=== PATIENT | male | born 2000 | race Caucasian/White ===

== ENCOUNTER 2024-11-26 16:34 | Emergency (ER) | payer SELFPAY ==
[2024-11-26 16:37] VITALS: BP 163/96; PULSE 90; TEMP 36.7; O2SAT 96; BMI 27.1
--- NOTE | 2024-11-26 16:45 | ED.NAVMDI1 ---
HPI - Nausea/Vomiting/Diarrhea General Chief complaint: Nausea/Vomiting/Diarrhea Stated complaint: BLOODY DIARRHEA Time Seen by Provider: 11/26/24 16:44 Source: patient Mode of arrival: walk-in History of Present Illness HPI Narrative: 24 year old male presents to the ED for diarrhea. Onset was yesterday. Reports bright red blood in his stools today. Denies fever, chills, N/V, abd pain, urinary sx. He returned from [facility] yesterday morning. States no one else he traveled with is ill. Related Data Previous Rx's ?Medication ?Instructions ?Recorded ciprofloxacin HCl 500 mg tablet 500 mg PO BID 10 days #20 tabs 11/26/24 (Cipro) metronidazole 500 mg tablet 500 mg PO Q8H 10 days #30 tabs 11/26/24 Allergies Allergy/AdvReac Type Severity Reaction Status Date / Time No Known Drug Allergies Allergy Verified 11/26/24 16:40 Review of Systems ROS Constitutional Denies: fever, chills or fatigue Ears, nose, mouth, and throat Denies: throat pain or neck pain Cardiovascular Denies: chest pain Respiratory Denies: shortness of breath or cough Gastrointestinal Reports: diarrhea and blood in stool; Denies: abdominal pain, nausea, vomiting or change in stool character Genitourinary Denies: painful urination, urinary frequency, urinary urgency or blood in urine Musculoskeletal Denies: back pain or neck pain Integumentary/Breast Denies: rash Neurological Denies: headache or dizziness PFSH PFSH Social History Little interest or pleasure in doing things: not at all Feeling down, depressed, or hopeless: not at all Exam Constitutional Vital Signs, click to edit/add: Last Vital Signs Temp 98.0 F 11/26/24 16:37 Pulse 90 11/26/24 16:37 Resp 16 11/26/24 16:37 BP 163/96 H 11/26/24 16:37 Pulse Ox 96 11/26/24 16:37 O2 Del Method Room Air 11/26/24 16:37 Common normals: no apparent distress and oriented x3 General appearance: cooperative [facility] Common normals: moist oral mucous membranes Eye Common normals: conjunctivae normal and no scleral icterus Neck & C-Spine Common normals: supple Chest Chest: symmetrical chest wall rise Respiratory Common normals: normal respiratory effort Effort & inspection: able to speak in complete sentences and symmetric chest movement Cardio Common normals: regular rate and regular rhythm GI Common normals: Normal to inspection, nondistended, normoactive bowel sounds present, soft to palpation and non-tender Neuro Common normals: oriented x3 and moves all extremities Sensorium/orientation: awake and alert Speech: speech normal Gait (neuro): normal gait Course Vital Signs Vital signs: Vital Signs Temperature 98.0 F 11/26/24 16:37 Pulse Rate 90 11/26/24 16:37 Respiratory Rate 16 11/26/24 16:37 Blood Pressure 163/96 H 11/26/24 16:37 Pulse Oximetry 96 11/26/24 16:37 Oxygen Delivery Method Room Air 11/26/24 16:37 Temperature 98.0 F 11/26/24 16:37 Pulse Rate 90 11/26/24 16:37 Respiratory Rate 16 11/26/24 16:37 Blood Pressure 163/96 H 11/26/24 16:37 Pulse Oximetry 96 11/26/24 16:37 Oxygen Delivery Method Room Air 11/26/24 16:37 MDM - Nausea/Vomiting/Diarrhea MDM Narrative Medical decision making narrative: WBC count was unremarkable. CT scan showed evidence of colitis. Stool culture was pending. Findings were discussed with the patient. Return precautions were discussed. Prescriptions were provided for Cipro and Flagyl. Follow up with pcp for a recheck, further evaluation and treatment. Differential Diagnosis Differential diagnosis: Likely traveler's diarrhea, food poisoning, gastroenteritis and other (colitis) Medical Records Attestation: I reviewed the patient's medical records. Lab Data Attestation: I reviewed the patient's lab results. Labs: Lab Results 11/26/24 11/26/24 Range/Units 16:51 18:10 WBC 10.8 (4.0-11.0) 10^3/uL RBC 5.38 (4.70-6.10) 10^6/uL Hgb 15.6 (14.0-18.0) g/dL Hct 46.6 (42.0-54.0) % MCV 86.6 (80.0-94.0) fL MCH 29.0 (25.9-34.0) pg MCHC 33.5 (29.9-35.2) g/dL RDW 12.8 (11.0-15.0) % Plt Count 197 (150-450) 10^3/uL MPV 10.5 (9.5-13.5) fL Neut % (Auto) 82.4 H (43.0-75.0) % Lymph % (Auto) 9.6 L (20.5-60.0) % Eddy % (Auto) 7.2 (1.7-12.0) % Eos % (Auto) 0.3 L (0.9-7.0) % Baso % (Auto) 0.2 (0.2-2.0) % Neut # (Auto) 8.9 H (1.4-6.5) 10^3/uL Lymph # (Auto) 1.0 L (1.2-3.8) 10^3/uL Eddy # (Auto) 0.8 (0.3-0.8) 10^3/uL Eos # (Auto) 0.0 (0.0-0.7) 10^3/uL Baso # (Auto) 0.0 (0.0-0.1) 10^3/uL Abs Immat Gran (auto) 0.03 (0.00-0.03) 10^3/uL Imm/Tot Granulo (auto) 0.3 (0.0-0.5) % Sodium 136 (136-145) mmol/L Potassium 3.8 (3.5-5.1) mmol/L Chloride 98 (98-107) mmol/L Carbon Dioxide 30.1 (21.0-32.0) mmol/L Anion Gap 11.7 BUN 12.0 (7.0-18.0) mg/dL Creatinine 1.03 (0.70-1.30) mg/dL Est GFR ( Amer) >60 (>=60 mL/min/1.73m^2) Est GFR (Non-Af Amer) >60 (>=60 mL/min/1.73m^2) BUN/Creatinine Ratio 11.7 Glucose 100 (74-106) mg/dL Calcium 9.2 (8.5-10.1) mg/dL Total Bilirubin 0.5 (0.2-1.0) mg/dL AST 16 (15-37) U/L ALT 28 (16-63) U/L Alkaline Phosphatase 73 (46-116) U/L Total Protein 7.5 (6.4-8.2) g/dL Albumin 3.9 (3.4-5.0) g/dL Globulin 3.6 g/dL Albumin/Globulin Ratio 1.1 Stool Occult Blood Positive A Imaging Data CT scan - abdomen: Attestation: I have reviewed the pertinent imaging results. Radiologist's impression: 1. Distal colitis with stranding identified along the margins of the affected colon segments including the lower left colon, sigmoid colon, and rectosigmoid colon junction. 2. Trace free fluid in the lower posterior pelvis. 3. No pneumatosis or free air. 4. No abscess or hematoma. 5. Normal appendix is well seen. 6. Fatty infiltration of the liver. 7. No features of enteritis, cholecystitis, or pancreatitis. 8. No features of gastritis. Discharge Plan Discharge Chief Complaint: Nausea/Vomiting/Diarrhea Clinical Impression: Diarrhea, Colitis Patient Disposition: Home, Self-Care Time of Disposition Decision: 19:59 Condition: Good Mode of Transportation: Private Vehicle Prescriptions / Home Meds: New ciprofloxacin HCl [Cipro] 500 mg tablet 500 mg PO BID 10 Days Qty: 20 0RF metronidazole 500 mg tablet 500 mg PO Q8H 10 Days Qty: 30 0RF Print Language: Khmer Instructions: Acute Diarrhea (ED), Acute Abdominal Pain (ED), Colitis (ED) Additional Instructions: Return to the ER if your condition worsens. Referrals: SOLIS SEGOVIA [Primary Care Provider] - As soon as possible Discharge Date/Time: 11/26/24 20:12
[2024-11-26] MEDS: 0.9 % SODIUM CHLORIDE 1,000 ML 999 ML IV (17:00)
[2024-11-26 17:02] LABS: Basophils Percent Auto 0.2 % (0.2-2.0); Eosinophils Percent Auto 0.3 % (0.9-7.0); Hematocrit 46.6 % (42.0-54.0); Hemoglobin 15.6 g/dL (14.0-18.0); Immature Granulocytes Abs Auto 0.03 10^3/uL (0.00-0.03); Immature Granulocytes Pct Auto 0.3 % (0.0-0.5); Lymphocytes Percent Auto 9.6 % (20.5-60.0); Mean Corpuscular HGB Conc 33.5 g/dL (29.9-35.2); Mean Corpuscular Volume 86.6 fL (80.0-94.0); Mean Platelet Volume 10.5 fL (9.5-13.5); Monocytes Absolute Auto 0.8 10^3/uL (0.3-0.8); Monocytes Percent Auto 7.2 % (1.7-12.0); Neutrophils Absolute Auto 8.9 10^3/uL (1.4-6.5); Neutrophils Percent Auto 82.4 % (43.0-75.0); Platelet Count 197 10^3/uL (150-450); Red Blood Count 5.38 10^6/uL (4.70-6.10); Red Cell Distribution Width 12.8 % (11.0-15.0); White Blood Count 10.8 10^3/uL (4.0-11.0)
[2024-11-26 17:26] LABS: Alanine Aminotransferase 28 U/L (16-63); Albumin Globulin Ratio 1.1; Albumin Level 3.9 g/dL (3.4-5.0); Alkaline Phosphatase 73 U/L (46-116); Anion Gap 11.7; Aspartate Amino Transferase 16 U/L (15-37); BUN Creatinine Ratio 11.7; Bilirubin Total 0.5 mg/dL (0.2-1.0); Calcium 9.2 mg/dL (8.5-10.1); Carbon Dioxide 30.1 mmol/L (21.0-32.0); Chloride 98 mmol/L (98-107); Estimated GFR (African America >60 (>=60 mL/min/1.73m^2); Estimated GFR (Non-African Ame >60 (>=60 mL/min/1.73m^2); Globulin 3.6 g/dL; Glucose 100 mg/dL (74-106); Potassium 3.8 mmol/L (3.5-5.1); Sodium 136 mmol/L (136-145); Total Protein 7.5 g/dL (6.4-8.2)
[2024-11-26 18:50] LABS: Internal Control Within Normal Limits; Occult Blood Positive
[2024-11-26] MEDS: METRONIDAZOLE 250 MG TABLET 500 MG PO (20:05)
[2024-11-26] MEDS: CIPROFLOXACIN HCL 500 MG TABLET PO (20:06)
[2024-11-27 08:28] LABS: C. Difficile PCR NEGATIVE
== END 2024-11-26 20:12 | disposition home or self-care (01) ==
PROVIDERS: Nurse Practitioner Family; Emergency Provider Emergency Medicine; PCP Family Medicine
DX: K52.9 Noninfective gastroenteritis and colitis, unspecified (principal)
CPT/HCPCS: 36415; 74177; 80053; 85025; 87045; 87046; 87427; 87493; 96360; 99285; G0328; Q9967